=== PATIENT | male | born 1985 | race African-American/Black ===

== ENCOUNTER 2017-10-18 04:00 | Emergency (ER) | payer SELFPAY ==
[~2017-10-18] VITALS: Ht 190.5 cm; Wt 94.4 kg
[2017-10-18 05:00] LABS: HEMATOCRIT 43.1 % (38.0-50.0); HEMOGLOBIN 14.8 G/DL (12.5-16.6); MCH 30.3 PG (29.0-34.0); MCHC 34.3 G/DL (30.0-36.0); MCV 88.3 FL (86-99); PLATELET COUNT 215 K/uL (156-360); RBC DIS.WIDTH-CV 12.7 % (11.8-14.6); RBC DIS.WIDTH-SD 41.5 % (39-53); RED BLOOD COUNT 4.88 M/uL (4.00-5.50); WHITE BLOOD COUNT 12.4 K/uL (4.1-10.2)
[2017-10-18 05:12] LABS: ALBUMIN 4.9 g/dL (3.2-4.8); CHLORIDE 101 mEq/L (99-109); SODIUM 136 mEq/L (136-147)
[2017-10-18 05:14] LABS: GLUCOSE 71 mg/dL (70-99); TOTAL PROTEIN 8.9 g/dL (6.4-8.3)
[2017-10-18 05:16] LABS: TOTAL BILIRUBIN 0.6 mg/dL (0.0-1.0)
[2017-10-18 05:17] LABS: SERUM ETHYL ALCOHOL < 10 mg/dL
[2017-10-18 05:18] LABS: ALKALINE PHOSPHATASE 90 IU/L (3-129); GFR ESTIMATE (CALCULATED) > 59 mL/min/ (58.99-99999)
[2017-10-18 05:19] LABS: UREA NITROGEN (BUN) 15 mg/dL (9-23)
[2017-10-18 05:20] LABS: AST (GOT) 33 IU/L (2-34)
[2017-10-18 05:21] LABS: ALT (GPT) 27 IU/L (3-49); LIPASE 26 U/L (1.0-51.0)
[2017-10-18] MEDS ORDERED: BENTYL20 MG PO (07:07)
[2017-10-18] MEDS ORDERED: ZOFRAN4 MG PO (07:07)
[2017-10-18 07:49] VITALS: BP 140/69
== END 2017-10-18 07:51 | disposition home or self-care (01) ==
LOC: EME 04:00
PROVIDERS: Emergency Medicine
DX: R10.13 Epigastric pain (principal); R11.2 Nausea with vomiting, unspecified; F17.200 Nicotine dependence, unspecified, uncomplicated; Z88.5 Allergy status to narcotic agent
CPT/HCPCS: 74177; 80053; 82948; 83690; 85027; 99281; 99284; G0480; J2270; J2405; J7030; S0028

== ENCOUNTER 2017-10-28 10:24 | Emergency (ER) | payer SELFPAY ==
[~2017-10-28] VITALS: Ht 190.5 cm; Wt 97.8 kg
[~2017-10-28 10:24] MED LIST: BENTYL20 MG PO; ZOFRAN4 MG PO
[2017-10-28] MEDS ORDERED: DELTASONE20 M1 PO (12:33)
[2017-10-28] MEDS ORDERED: LIDODERM 5% P1 PATCH TD (12:33)
[2017-10-28] MEDS ORDERED: VALIUM5 MG PO (12:33)
[2017-10-28] MEDS ORDERED: MOTRIN800 MG PO (12:33)
[2017-10-28 13:01] VITALS: BP 119/60
== END 2017-10-28 13:05 | disposition home or self-care (01) ==
LOC: EME 10:24
DX: M54.42 Lumbago with sciatica, left side (principal); F17.200 Nicotine dependence, unspecified, uncomplicated
CPT/HCPCS: 72100; 99281; 99284; J1885; J2060; J7512